=== PATIENT | female | born 1965 | race Two or more races ===

== ENCOUNTER 2018-04-11 12:43 | Outpatient (CLI) | payer OTHER | END 2018-04-11 12:44 | disposition home or self-care (01) | LOC: SONOGRAMA 12:43 → MAMO-SONO 13:15 | DX: E04.0 Nontoxic diffuse goiter (principal) ==

== ENCOUNTER 2020-03-26 10:05 | Outpatient (CLI) | payer OTHER | END 2020-03-26 10:18 | disposition home or self-care (01) | LOC: MRI 10:05 | PROVIDERS: ATTEND Specialist | DX: K80.80 Other cholelithiasis without obstruction (principal); R94.5 Abnormal results of liver function studies; K80.10 Calculus of gallbladder with chronic cholecystitis without obstruction | CPT/HCPCS: 74181 ==

== ENCOUNTER 2020-04-14 04:48 | Day surgery (SDC) | payer OTHER ==
[~2020-04-14 04:48] MED LIST: CLONAZEPAM0.5 M1 PO; COZAAR100 MG PO; HYDRODIURIL12.5 MG PO; LEVO-T25 MCG PO; TOPROL XL50 M1 PO; WELLBUTRIN XL300 MG PO
== END 2020-04-14 13:05 | disposition home or self-care (01) ==
LOC: CIR.AMB 04:48
PROVIDERS: ATTEND Specialist
DX: K80.10 Calculus of gallbladder with chronic cholecystitis without obstruction (principal); Z20.828 Contact with and (suspected) exposure to other viral communicable diseases